=== PATIENT | female | born 1965 | race Two or more races ===

== ENCOUNTER → 2016-10-25 | Outpatient (CLI) | payer OTHER ==
[2016-10-25 11:29] LABS: BASO # 0.1 x10^3/uL (0.0-0.2); BASO % 1 % (0-3); EOS % 1 % (0-3); HEMATOCRIT 38.8 % (36.0-47.0); HEMOGLOBIN 13.1 g/dL (12.0-15.5); LYMPH # 2.4 x10^3/uL (1.0-4.8); LYMPH % 26 % (24-48); MEAN CORPUSCULAR HEMOGLOBIN 29 pg (25-35); MEAN CORPUSCULAR HGB CONC 34 g/dL (31-37); MEAN CORPUSCULAR VOLUME 85 fL (79-100); MONO % 8 % (0-9); NEUT % 64 % (31-73); PLATELET COUNT 265 x10^3/uL (140-400); RED BLOOD COUNT 4.55 x10^6/uL (3.50-5.40); WHITE BLOOD COUNT 9.2 x10^3/uL (4.0-11.0)
[2016-10-25 11:54] LABS: ALBUMIN 3.8 g/dL (3.4-5.0); CALCIUM 9.5 mg/dL (8.5-10.1); CREATININE 0.7 mg/dL (0.6-1.0); GFR 88.6; POTASSIUM 4.3 mmol/L (3.5-5.1); TOTAL BILIRUBIN 0.4 mg/dL (0.2-1.0); TOTAL PROTEIN 7.5 g/dL (6.4-8.2)
[2016-10-25 11:55] LABS: CHOLESTEROL/HDL RATIO 1.8
[2016-10-25 12:07] LABS: FREE T4 1.05 ng/dL (0.76-1.46)
== END | disposition home or self-care (01) ==
LOC: LAB 11:07
PROVIDERS: ATTEND Internal Medicine
DX: E04.9 Nontoxic goiter, unspecified (principal); R53.83 Other fatigue; E78.5 Hyperlipidemia, unspecified
CPT/HCPCS: 36415; 80053; 80061; 84439; 84443; 85027

== ENCOUNTER → 2017-02-18 | Outpatient (CLI) | payer OTHER ==
--- NOTE | 2017-02-18 10:49 | KCIC ---
Examination: DEXA scan HISTORY: History of family history of osteoporosis, on thyroid medication. COMPARISON: None available FINDINGS: The bone mineral density in the left hip is 0.855 g/sq cm with a T score of -0.7 and a Z score of -0.2. The bone density in the lumbar spine is 0.963 g/sq cm with a T score of -0.8 and a Z score of 0.0. IMPRESSION: Normal bone mineral density. Electronically signed by: Kong Mandel MD (02/18/2017 10:46 AM)
--- NOTE | 2017-02-18 11:25 | KCIC ---
Thyroid ultrasound Indication:Thyroid goiter Technique: Multiple Realtime sonographic albarran scale images were obtained over the neck. Static images were submitted for interpretation. Findings: The right lobe of the thyroid measures 5.4 x 1.6 x 2.1 cm. The left lobe measures 4.5 x 1.6 x 2.6 cm. Isthmus is 8 mm in thickness. There is a solid complex vascular nodule within the lower pole of the left thyroid measures 1.8 x 1.1 x 1.7 cm. IMPRESSION: 1.8 cm solid vascular nodule within the inferior pole of the left thyroid. Electronically signed by: Todd Snyder MD (02/18/2017 11:22 AM)
== END | disposition home or self-care (01) ==
LOC: KCIC DEXA 09:27
PROVIDERS: ATTEND Physician Assistant Surgical
DX: Z01.419 Encounter for gynecological examination (general) (routine) without abnormal findings (principal); E04.9 Nontoxic goiter, unspecified; Z82.62 Family history of osteoporosis; Z84.89 Family history of other specified conditions; M85.88 Other specified disorders of bone density and structure, other site
CPT/HCPCS: 76536; 77080

== ENCOUNTER → 2017-02-22 | Day surgery (SDC) | payer OTHER ==
[~2017-02-22] MED LIST: IV RINGERS,LACTATED 1000ML 1,000 ML IV SCH; LIDOCAINE 2% PF Vial for OR 5 ML VIAL. ONE; PROPOFOL 0 ML IV ONE; PROPOFOL 20 ML IV ONE
--- NOTE | 2017-02-22 10:48 | PDOC ---
Provider Note Provider Note Present history: Here for screening colonoscopy. No complain. Past medical history: None. Pat surgical history: C section. Allergy: NKDA Current Medication; Reviewed. Family history: egative. Physical exam: Alert and oriented. VS: stable. Chest: clear. Heart: s1 s2 normal. Abdomen: soft. Non tender. 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 Assessment: Average risk for colon cancer. Plan: Screening colonoscopy. LORAINE HERNANDEZ MD Feb 22, 2017 10:48
[2017-02-22 10:55] VITALS: BP 86/54
--- NOTE | 2017-02-22 11:37 | PDOC4 ---
GI OP Report - Dr. Hernandez Date/Time DATE: 02/22/17 TIME: 11:35 Attending Physician Cyril Hernandez MD Referring Physician Indications Screening for colorectal malignant neoplasm Pre-Op See the Anesthesia note for documentation of the administered medications Procedures Colonoscopy Findings - The entire examined colon is normal on direct and retroflexion views. - No specimens collected. Plan - Discharge patient to home. - Patient has a contact number available for emergencies. The signs and symptoms of potential delayed complications were discussed with the patient. Return to normal activities tomorrow. Written discharge instructions were provided to the patient. - Resume regular diet. - Continue present medications. - Repeat colonoscopy in 10 years for surveillance. - Return to my office as needed. CYRIL HERNANDEZ MD Feb 22, 2017 11:37
== END | disposition home or self-care (01) ==
LOC: ENDOS 08:46
PROVIDERS: ATTEND Internal Medicine Gastroenterology
DX: Z12.11 Encounter for screening for malignant neoplasm of colon (principal); K21.9 Gastro-esophageal reflux disease without esophagitis; K92.9 Disease of digestive system, unspecified
CPT/HCPCS: 45378; J2704

== ENCOUNTER → 2017-02-25 | Outpatient (CLI) | payer OTHER ==
[2017-02-22 10:55] VITALS: BP 86/54
[2017-02-25 14:20] LABS: FREE T4 1.15 ng/dL (0.76-1.46)
[2017-02-26 03:21] LABS: VITAMIN D25(OH)TOTAL 54.6 ng/mL (30.0-100.0)
[2017-02-28 13:20] LABS: THYROGLOBULIN ANTIBODY 41.8 IU/mL (0.0-0.9)
== END | disposition home or self-care (01) ==
LOC: LAB 12:30
PROVIDERS: ATTEND Physician Assistant Surgical
DX: Z01.419 Encounter for gynecological examination (general) (routine) without abnormal findings (principal)
CPT/HCPCS: 36415; 80061; 82306; 84439; 84443; 84481; 86376; 86800

== ENCOUNTER → 2017-02-28 | Outpatient (CLI) | payer OTHER ==
[~2017-02-28] VITALS: Ht 152.4 cm; Wt 58.5 kg
[2017-02-28 09:14] VITALS: BP 95/58
--- NOTE | 2017-02-28 11:08 | RAD ---
Indication nodule left lobe of the thyroid. Note is made of a prior examination of the thyroid 02/18/2017. Preliminary images were obtained and the subtle nodule in the left lobe of the thyroid was identified. Material Dispatcher ultrasound images were saved. Image guided biopsy was discussed with the patient. The risks of infection and bleeding were outlined. The possibility of a nondiagnostic study was also discussed. The patient understood the nature and limitations of the procedure and wished to proceed. The skin was prepped and draped in the routine fashion. A medial to lateral approach was selected. Local anesthesia was accomplished with 1% lidocaine. 5 25-gauge FNA samples were obtained. A single Rotex sample was obtained. 2 19-gauge Temno samples were also obtained. Pathology was present during the procedure and all retrieved material was given to pathology. The patient tolerated the procedure well. The patient was watched in the department for approximately 15 minutes following the procedure and then discharged with appropriate instructions. IMPRESSION: Successful image guided biopsy nodule left lobe of the thyroid
== END | disposition home or self-care (01) ==
LOC: US 08:25
PROVIDERS: ATTEND Family Medicine
DX: E04.1 Nontoxic single thyroid nodule (principal)
CPT/HCPCS: 60300; 76942

== ENCOUNTER → 2017-11-14 | Outpatient (CLI) | payer OTHER ==
[2017-11-14 10:52] LABS: ADD MAN DIFF? NO
[2017-11-14 10:58] LABS: BASO % 1 % (0-3); EOS % 0 % (0-3); HEMATOCRIT 39.6 % (36.0-47.0); LYMPH # 1.7 x10^3/uL (1.0-4.8); LYMPH % 23 % (24-48); MEAN CORPUSCULAR HEMOGLOBIN 29 pg (25-35); MEAN CORPUSCULAR HGB CONC 33 g/dL (31-37); MEAN CORPUSCULAR VOLUME 88 fL (79-100); MONO # 0.6 x10^3/uL (0.0-1.1); MONO % 8 % (0-9); NEUT # 5.2 x10^3uL (1.8-7.7); NEUT % 68 % (31-73); PLATELET COUNT 225 x10^3/uL (140-400); RED BLOOD COUNT 4.51 x10^6/uL (3.50-5.40); RED CELL DISTRIBUTION WIDTH 12.6 % (11.5-14.5); WHITE BLOOD COUNT 7.6 x10^3/uL (4.0-11.0)
[2017-11-14 11:25] LABS: ALBUMIN 3.8 g/dL (3.4-5.0); ALK PHOS 62 U/L (46-116); ALT (SGPT) 18 U/L (14-59); ANION GAP 9 (6-14); AST (SGOT) 21 U/L (15-37); BLOOD UREA NITROGEN 10 mg/dL (7-20); BUN/CREATININE RATIO 14 (6-20); CALCIUM 9.8 mg/dL (8.5-10.1); CARBON DIOXIDE 28 mmol/L (21-32); CHLORIDE 104 mmol/L (98-107); CHOLESTEROL 156 mg/dL (0-200); CREATININE 0.7 mg/dL (0.6-1.0); GFR 88.2; GLUCOSE 91 mg/dL (70-99); HDLC 85 mg/dL (40-60); LDLC 64 mg/dL (0-100); NON-HDL CHOLESTEROL 71 mg/dL (0-129); SODIUM 141 mmol/L (136-145); TOTAL BILIRUBIN 0.4 mg/dL (0.2-1.0); TOTAL PROTEIN 7.6 g/dL (6.4-8.2); TRIGLYCERIDES 37 mg/dL (0-150); VLDLC 7 mg/dL (0-40)
[2017-11-14 11:26] LABS: CHOLESTEROL/HDL RATIO 1.8
[2017-11-14 11:35] LABS: FREE T4 0.99 ng/dL (0.76-1.46)
[2017-11-14 11:35] LABS: THYROID STIM HORMONE (TSH) 0.797 uIU/mL (0.358-3.74)
[2017-11-14 12:14] LABS: SEDIMENTATION RATE 7 (0-25)
[2017-11-14 19:15] LABS: ESTRADIOL LEVEL 87.8 pg/mL (.); FSH 4.1 mIU/mL (.)
[2017-11-15 00:10] LABS: HCV ANTIBODY <0.1 s/co ratio (0.0-0.9); HEP A IGM ABDY Negative (Negative); HEP B SURFACE AG Negative (Negative)
[2017-11-15 07:38] LABS: RPR Non Reactive (Non Reactive)
[2017-11-15 09:23] LABS: HIV ANTIBODY Non Reactive (Non Reactive)
[2017-11-16 10:27] LABS: THYROGLOBULIN ANTIBODY 50.9 IU/mL (0.0-0.9)
== END | disposition home or self-care (01) ==
LOC: LAB 10:24
DX: Z12.31 Encounter for screening mammogram for malignant neoplasm of breast (principal); E55.9 Vitamin D deficiency, unspecified; E04.2 Nontoxic multinodular goiter; R53.83 Other fatigue; R79.89 Other specified abnormal findings of blood chemistry
CPT/HCPCS: 36415; 77063; 77067; 80053; 80061; 80074; 82306; 82670; 83001; 83002; 84439; 84443; 85025; 85651; 86593; 86703; 86800